=== PATIENT | male | born 2000 | race African-American/Black ===

== ENCOUNTER 2019-05-02 09:18 | Outpatient (CLI) | payer OTHER | END 2019-05-02 23:11 | disposition home or self-care (01) | LOC: RAD 09:18 | DX: R10.32 Left lower quadrant pain (principal); T18.9XXA Foreign body of alimentary tract, part unspecified, initial encounter; R10.12 Left upper quadrant pain ==

== ENCOUNTER 2022-11-02 09:48 | Outpatient (CLI) | payer BC | END 2022-11-02 21:30 | disposition home or self-care (01) | LOC: RESP 09:48 | PROVIDERS: ATTEND Nurse Practitioner Family | DX: R00.0 Tachycardia, unspecified (principal); R07.9 Chest pain, unspecified; R42 Dizziness and giddiness; I10 Essential (primary) hypertension ==

== ENCOUNTER 2022-11-18 08:55 | Outpatient (CLI) | payer BC | END 2022-11-18 17:00 | disposition home or self-care (01) | LOC: US 08:55 | PROVIDERS: ATTEND Nurse Practitioner Family | DX: R74.8 Abnormal levels of other serum enzymes (principal) ==